=== PATIENT | female | born 1975 | race Hispanic/Latino ===

== ENCOUNTER 2025-01-06 20:50 | Emergency (ER) | payer OTHER ==
[~2025-01-06] VITALS: Ht 167.6 cm; Wt 92.1 kg
[2025-01-06] MEDS: KETOROLAC TROMETHAMINE 30 MG/ML VIAL IV ONE (21:35)
[2025-01-06] MEDS: ONDANSETRON HCL INJ 2MG/ML 2ML 2 MG/ML VIAL IV ONE (21:35)
[2025-01-06] MEDS: LACTATED RINGER'S 1,000 ML INJ ONE (21:36)
[2025-01-06] MEDS: FAMOTIDINE 20 MG/2 ML VIAL IV ONE (21:36)
[2025-01-07] MEDS ORDERED: OMEPRAZOLE40 MG PO (00:44)
[2025-01-07] MEDS ORDERED: ULTRAM 50MG50 MG PO (00:44)
[2025-01-07] MEDS ORDERED: MAALOX MAXIMUM355 ML PO (00:44)
[2025-01-07 00:45] VITALS: PULSE 73; RESP 16; TEMP 98
[2025-01-07 00:48] VITALS: BP 129/78; PULSE 73; RESP 16; TEMP 98; O2SAT 99
== END 2025-01-07 00:57 | disposition home or self-care (01) ==
LOC: FSED 20:52
DX: R10.11 Right upper quadrant pain (principal); K80.20 Calculus of gallbladder without cholecystitis without obstruction; D25.9 Leiomyoma of uterus, unspecified; I10 Essential (primary) hypertension; E11.9 Type 2 diabetes mellitus without complications; E78.5 Hyperlipidemia, unspecified; J45.909 Unspecified asthma, uncomplicated
CPT/HCPCS: 74176; 80048; 80076; 81003; 81025; 85025; 96374; 96375; 99284; J0696; J1885; J2405; J7121

== ENCOUNTER 2025-04-24 11:43 | Emergency (ER) | payer OTHER ==
[~2025-04-24] VITALS: Ht 167.6 cm; Wt 91.2 kg
[~2025-04-24 11:43] MED LIST: MAALOX MAXIMUM355 ML PO; OMEPRAZOLE40 MG PO; ULTRAM 50MG50 MG PO
[2025-04-24 11:50] VITALS: PULSE 79; RESP 18; TEMP 97.9
[2025-04-24] MEDS ORDERED: CLARITIN10 MG PO (12:10)
[2025-04-24] MEDS ORDERED: MECLIZINE HCL25 MG PO (12:10)
[2025-04-24] MEDS: KETOROLAC TROMETHAMINE 30 MG/ML VIAL IV ONE (12:27)
[2025-04-24] MEDS: LACTATED RINGER'S 1,000 ML INJ ONE (12:27)
[2025-04-24] MEDS: MECLIZINE HCL 12.5 MG TAB PO ONE (12:27)
[2025-04-24] MEDS: ACETAMINOPHEN 325 MG TAB PO ONE (12:28)
[2025-04-24 12:52] VITALS: BP 117/82; PULSE 60; RESP 18; O2SAT 98
== END 2025-04-24 13:01 | disposition home or self-care (01) ==
LOC: FSED 11:55
DX: R42 Dizziness and giddiness (principal); J30.9 Allergic rhinitis, unspecified; R51.9 Headache, unspecified; R09.81 Nasal congestion; I10 Essential (primary) hypertension; E11.9 Type 2 diabetes mellitus without complications
CPT/HCPCS: 80053; 81003; 85025; 99284; J1885; J7121; J8597